=== PATIENT | female | born 1945 | race Caucasian/White ===

== ENCOUNTER 2017-03-31 05:45 | Inpatient (IN) | payer OTHER ==
[2017-03-28 20:46] LABS: HEMATOCRIT 37.4 % (36.0-48.0); HEMOGLOBIN 11.8 g/dL (12.0-16.0)
[2017-03-28 20:54] LABS: CALCIUM, SERUM 8.9 MG/DL (8.5-10.4); CHLORIDE, SERUM 99 MMOL/L (96-112); CO2 (CARBON DIOXIDE) 33 MMOL/L (24-34); CREATININE 1.57 MG/DL (0.55-1.02); GFR AFRICAN AMERICAN 38 ML/MIN (>=60); GFR NON AFRICAN AMERICAN 33 ML/MIN (>=60); POTASSIUM, SERUM 4.5 MMOL/L (3.5-5.3); SODIUM, SERUM 137 MMOL/L (135-148)
[2017-03-28 20:55] LABS: BUN (BLOOD UREA NITROGEN) 18 MG/DL (6-23); GLUCOSE, SERUM 231 MG/DL (60-99)
[~2017-03-31] VITALS: Ht 165.1 cm; Wt 116.6 kg
--- NOTE | ~2017-03-31 | CN ---
Consultation Report [facility] [address] [place]. [address] NAME: ODALIS NG : 44 STATUS : ADM IN PAT#: [id number] AGE: 71 ADM/REG DATE : 03/31/17 MR#: [id number] REPORT SERV DATE: 04/02/17 DICTATED BY: GILMA GUZMAN DATE: 04/02/17 REPORT STATUS : Draft TRANSCRIBED BY: NIELS DATE: 04/02/17 CONSULT NOTE DATE OF CONSULTATION: REASON FOR CONSULTATION: Acute renal insufficiency. HISTORY OF PRESENT ILLNESS: This is a 71-year-old woman who had been complaining about lumbar spine pain. The patient was brought into the hospital for surgical intervention that was done on 03/31/2017. The patient had been having some recurrent radiculopathy. Has a history of lumbar laminectomy L4-L5 x2. The patient had done a revision facetectomy at L4- L5. Second postop day, the patient was noted to have acute on chronic kidney disease and evidence of urinary tract infection. Hospitalist consulted for further inpatient management. The patient reports pain postoperatively, but controlled with current pain medications. Denies any chest pain, fever, chills, cough, shortness of breath, palpitations, diaphoresis, hemoptysis, melena, hematochezia, orthopnea, lower extremity swelling, slurred speech, or loss of consciousness. ALLERGIES: PENICILLIN, PERCOCET, CECLOR. MEDICATIONS: Include diclofenac, Neurontin, [place], tramadol, losartan, Trulicity, omeprazole, levothyroxine, Tradjenta, amlodipine, Januvia, glipizide, Toujeo, Humalog, allopurinol, citalopram. PAST MEDICAL HISTORY: L4-L5 lumbar laminectomy, cataract extraction, arthroscopy of the right knee. FAMILY HISTORY: Significant for cancer, rheumatoid arthritis. SOCIAL HISTORY: The patient is and retired. Denied any tobacco or illicit drug use, but reported occasional alcohol consumption. REVIEW OF SYSTEMS: Twelve-point systems reviewed; otherwise, negative per HPI. PHYSICAL EXAMINATION: VITAL SIGNS: Temperature 98.5, heart rate 92, blood pressure 151/67, respiratory rate 20, and O2 saturation 96 on 3 L. GENERAL: In no acute distress, obese. HEENT: EOMI, PERRLA, nonicteric sclerae, nonerythematous pharynx. NECK: Supple. No JVD. No lymphadenopathy. RESPIRATORY: Clear to auscultation bilaterally. No wheezes, rhonchi, or crackles. CARDIOVASCULAR: Regular rate and rhythm. No murmurs, rubs, or gallops. ABDOMEN: Bowel sounds positive. Soft, nontender, and nondistended. No rebound or Consultation Report [address] [place]. [address] NAME: ODALIS NG : 44 STATUS : ADM IN PAT#: [id number] AGE: 71 ADM/REG DATE : 03/31/17 MR#: [id number] REPORT SERV DATE: 04/02/17 DICTATED BY: GILMA GUZMAN DATE: 04/02/17 REPORT STATUS : Draft TRANSCRIBED BY: NIELS DATE: 04/02/17 guarding. SKIN: Dressing intact and clean. EXTREMITIES: No cyanosis. NEUROLOGIC: Alert and oriented x3. Nonfocal. LABORATORY DATA: Sodium 127, potassium 5.1, chloride 93, bicarb 24, BUN 41, creatinine 3.11, glucose 188. UA with evidence of urinary tract infection. ASSESSMENT: 1. Status post lumbar spine surgery. 2. Acute on chronic kidney disease, stage 3, likely of prerenal physiology with JASIEL inhibitor contributing. 3. Urinary tract infection. 4. Hyponatremia, secondary to low p.o. intake. 5. Insulin-dependent diabetes type 2. PLAN: We will check urine sodium, urine creatinine, calculate FENa. Check renal ultrasound to rule out any evidence of obstruction. IV fluids. Hold losartan. Consider Renal consult in the morning if the renal function deteriorates. Add Rocephin. Check urine cultures. Titrate antibiotics accordingly per sensitivities. Follow labs in the morning. Further evaluation and management per clinical course. CODE STATUS: Full code. DVT prophylaxis per primary. Total time for consult note, 35 minutes. CRISTA/NIELS Sonya Atkins MD / [id number] CC: Lane Fernandez II, M.D.
--- NOTE | ~2017-03-31 | OP ---
Record Of Operation [place] [id number] [facility] [place]. [address] NAME: ODALIS NG : 44 STATUS : ADM IN PAT#: [id number] AGE: 71 ADM/REG DATE : 03/31/17 MR#: [id number] REPORT SERV DATE: 04/01/17 DICTATED BY: GOSIA EVERETT II DATE: 04/01/17 REPORT STATUS : Draft TRANSCRIBED BY: MODTaina DATE: 04/01/17 DATE OF PROCEDURE: 03/31/2017 PREOPERATIVE DIAGNOSES: 1. Left lower extremity recurrent radiculopathy. 2. History of lumbar laminectomy L4-L5 x2. 3. Post-laminectomy instability with recurrent stenosis. POSTOPERATIVE DIAGNOSES: 1. Left lower extremity recurrent radiculopathy. 2. History of lumbar laminectomy L4-L5 x2. 3. Post-laminectomy instability with recurrent stenosis. PROCEDURES: 1. Revision facetectomy, L4-L5. 2. Interbody arthrodesis, L4-L5. 3. Application of prosthetic device, L4-L5. 4. Posterolateral arthrodesis, L4-5. 5. Posterior nonsegmental instrumentation, L4-L5. 6. Use of the microscope and stereotactic spinal imaging. 7. Use of allograft substitute (morselized). 8. Use of bone morphogenic protein. FLUIDS REPLACED: 1200 mL LR. ESTIMATED BLOOD LOSS: 75 mL. DRAINS: One drain. COMPLICATIONS: None. ANTIBIOTIC: Preoperatively. IMPLANTS: Alphatec. PREOPERATIVE HISTORY: A friendly 71-year-old female, well known to me. She presents with recurrent leg pain secondary to recurrent stenosis. She has had decompressions at L4-5 twice. We discussed the pros and cons of continuing nonoperative care versus surgery. I felt a complete facetectomy and fusion was her best option. I felt that a revision laminectomy alone would likely not work intermediate to long-term. We discussed the more common risks which include, but are not limited to infection, bleeding, and spinal fluid leak. We discussed the chance of hardware failure and adjacent segment degeneration. DESCRIPTION OF PROCEDURE: After informed consent was obtained, the patient was brought to [facility] [address] [place]. [address] NAME: ODALIS NG : 43 STATUS : ADM IN PAT#: [id number] AGE: 71 ADM/REG DATE : 03/31/17 MR#: [id number] REPORT SERV DATE: 04/01/17 DICTATED BY: GOSIA EVERETT II DATE: 04/01/17 REPORT STATUS : Draft TRANSCRIBED BY: NIELS DATE: 04/01/17 the operating room at her request and general anesthesia achieved. She was placed in the prone position. The back was prepped and draped in a sterile fashion. The stereotactic spinal pin was placed into the iliac crest and the intraoperative CT scan completed. The stereotactic guidance was then used throughout the remainder of the case. Next, the minimally invasive incision was now performed on the left and the minimally invasive quadrant retractor was placed. This was rather difficult because of the depth of the operative site. We used 9 cm custom length retractor blades. We then used the 9 and 11 cm medial to lateral blades. With the microscope in place, we now began the revision facetectomy. The pars was now removed and the pedicle to pedicle decompression achieved. There was severe compression upon the L5 nerve root and moderate compression upon the L4 nerve root. Both nerve roots were well decompressed including the canal. There was moderate scarring. Next, the irrigation was performed. Next, the interbody arthrodesis was initiated with the diskectomy at L4-L5. The L5 nerve root was gently retracted and the diskectomy completed with the pituitary rongeurs, Kerrison rongeurs, and the curettes. Punctate bleeding bone was identified on both endplates. The area was now irrigated. Next, local autograft and allograft substitute and bone morphogenic protein were placed into the anterior column. Next, the prosthetic device (12 mm height) was placed also into the anterior column. The excellent fit was obtained. Next, the stereotactic guidance was used for placement of the pedicle screws into L4, L5. On the right percutaneous screws were placed. The repeat CT scan confirmed acceptable placement of the implants. The rods were then final tightened. We then placed a local autograft and allograft substitute over the decorticated transverse processes of L4 and L5. The deep drain was placed. Standard closure was then performed, and the patient was extubated and transferred to PACU in stable condition. MUKESH/NIELS Gosia Everett II, M.D. / [id number] CC: Virgilio Locke II, III, D.O.
[~2017-03-31 05:45] MED LIST: ACET500CAP PO; ARMOUR THYRO PO; ARMOUR THYRO180 MG PO; CELEXA40 MG PO; CINNAMON CHROMIUM PO; COZ50 PO; CYANO1000T PO; FLEX PO; GLUCOPHAGE1000 MG PO; GLUCOTRO10 PO; GREEN TEA PO; HARD NAILS PO; HUMALOG SC; JANUVIA; JANUVIA100 MG PO; LEVOTHYROXIN175 MCG PO; LEVOTHYROXIN200 MCG PO; NEUR300 PO; PRILO PO; PRIN10 PO; SINGULAIR1 PO; TOUJEO PO; TOUJEO SQ; TRADJENTA5 MG PO; TRAZODONE150 MG PO; TRULICITY0.75 MG/0. SQ; ULTRAM50 PO; VENTOLIN HFA INH; VITE PO; VOLT75 PO; Z100 PO; ZESTRIL30 MG PO
[2017-04-02 03:52] LABS: ASCORBIC ACID (UR NOT ORDER) NEG (NEG); BILIRUBIN, URINE NEGATIVE (NEG); KETONE, URINE NEGATIVE (NEG); LEUKOCYTE ESTERASE(NOT OR MOD (NEG); WBC (NOT ORDERED) (RFLEX) 108 (0-5)
[2017-04-02 05:48] LABS: BUN (BLOOD UREA NITROGEN) 41 MG/DL (6-23); CALCIUM, SERUM 8.1 MG/DL (8.5-10.4); CHLORIDE, SERUM 93 MMOL/L (96-112); CO2 (CARBON DIOXIDE) 24 MMOL/L (24-34); CREATININE 3.11 MG/DL (0.55-1.02); GFR AFRICAN AMERICAN 17 ML/MIN (>=60); GFR NON AFRICAN AMERICAN 14 ML/MIN (>=60); GLUCOSE, SERUM 188 MG/DL (60-99); POTASSIUM, SERUM 5.1 MMOL/L (3.5-5.3); SODIUM, SERUM 127 MMOL/L (135-148)
[2017-04-03 10:49] LABS: BUN (BLOOD UREA NITROGEN) 40 MG/DL (6-23); CALCIUM, SERUM 8.1 MG/DL (8.5-10.4); CHLORIDE, SERUM 99 MMOL/L (96-112); CO2 (CARBON DIOXIDE) 24 MMOL/L (24-34); POTASSIUM, SERUM 5.2 MMOL/L (3.5-5.3); SODIUM, SERUM 131 MMOL/L (135-148)
[2017-04-03 10:50] LABS: CREATININE 1.66 MG/DL (0.55-1.02); GFR AFRICAN AMERICAN 35 ML/MIN (>=60); GFR NON AFRICAN AMERICAN 30 ML/MIN (>=60); GLUCOSE, SERUM 115 MG/DL (60-99)
[2017-04-04 05:22] LABS: BASOPHILS 0.2 %; BASOPHILS ABSOLUTE 0.02 10/3/uL (0.0-0.16); EOSINOPHILS 1.4 %; EOSINOPHILS ABSOLUTE 0.14 10/3/uL (0.0-0.53); IMMATURE GRANULOCYTES 0.2 %; IMMATURE GRANULOCYTES ABSOLUTE 0.02 10/3/uL (0.0-0.11); LYMPHOCYTES 12.3 %; LYMPHOCYTES ABSOLUTE 1.27 10/3/uL (0.67-4.30); MEAN CORPUS HGB CONC 32.1 g/dL (32.0-36.0); MEAN CORPUSCULAR VOLUME 93.3 fL (80-100); MONOCYTES 9.7 %; MONOCYTES ABSOLUTE 1.01 10/3/uL (0.21-1.20); NEUTROPHILS 76.2 %; PLATELET COUNT 177 10/3/uL (150-400); RBC DISTRIBUTION WIDTH 15.3 % (12.0-16.0); WHITE BLOOD CELLS 10.4 10/3/uL (4.5-10.5)
[2017-04-04 05:27] LABS: MANUAL DIFF NO %
[2017-04-04 05:28] LABS: CALCIUM, SERUM 8.3 MG/DL (8.5-10.4); CHLORIDE, SERUM 101 MMOL/L (96-112); CO2 (CARBON DIOXIDE) 26 MMOL/L (24-34); CREATININE 1.29 MG/DL (0.55-1.02); GFR AFRICAN AMERICAN 48 ML/MIN (>=60); GFR NON AFRICAN AMERICAN 41 ML/MIN (>=60); GLUCOSE, SERUM 100 MG/DL (60-99); POTASSIUM, SERUM 4.9 MMOL/L (3.5-5.3); SODIUM, SERUM 134 MMOL/L (135-148)
[2017-04-04 05:30] LABS: BUN (BLOOD UREA NITROGEN) 29 MG/DL (6-23)
[2017-04-04 17:09] LABS: ULTRASENSITIVE TSH 0.047 MCIU/ML (0.358-3.740)
[2017-04-05 05:13] LABS: BASOPHILS 0.3 %; BASOPHILS ABSOLUTE 0.03 10/3/uL (0.0-0.16); EOSINOPHILS 2.9 %; EOSINOPHILS ABSOLUTE 0.26 10/3/uL (0.0-0.53); HEMATOCRIT 27.9 % (36.0-48.0); HEMOGLOBIN 9.1 g/dL (12.0-16.0); IMMATURE GRANULOCYTES 0.3 %; IMMATURE GRANULOCYTES ABSOLUTE 0.03 10/3/uL (0.0-0.11); LYMPHOCYTES 9.8 %; LYMPHOCYTES ABSOLUTE 0.87 10/3/uL (0.67-4.30); MANUAL DIFF NO %; MEAN CORPUS HGB CONC 32.6 g/dL (32.0-36.0); MEAN CORPUSCULAR HEMOGLOB 30.1 pg (26.0-34.0); MEAN CORPUSCULAR VOLUME 92.4 fL (80-100); MEAN PLATELET VOLUME 10.6 fL (9.2-13.0); MONOCYTES 10.2 %; NEUTROPHILS 76.5 %; NEUTROPHILS ABSOLUTE 6.75 10/3/uL (2.02-8.40); PLATELET COUNT 180 10/3/uL (150-400); RBC DISTRIBUTION WIDTH 15.5 % (12.0-16.0); RED CELL COUNT 3.02 10/6/uL (4.0-5.6); WHITE BLOOD CELLS 8.8 10/3/uL (4.5-10.5)
[2017-04-05 05:24] LABS: CALCIUM, SERUM 9.1 MG/DL (8.5-10.4); CHLORIDE, SERUM 102 MMOL/L (96-112); CO2 (CARBON DIOXIDE) 29 MMOL/L (24-34); CREATININE 1.02 MG/DL (0.55-1.02); GFR AFRICAN AMERICAN 64 ML/MIN (>=60); GFR NON AFRICAN AMERICAN 55 ML/MIN (>=60); POTASSIUM, SERUM 4.9 MMOL/L (3.5-5.3); SODIUM, SERUM 136 MMOL/L (135-148)
[2017-04-05 05:26] LABS: BUN (BLOOD UREA NITROGEN) 23 MG/DL (6-23); GLUCOSE, SERUM 131 MG/DL (60-99)
== END 2017-04-06 18:27 | DRG 460 ==
LOC: ENRESERV → ENRESERVTM → ENRESERVDT → SDC/OF 11:21 → 3SO 11:21
PROVIDERS: Internal Medicine; Nurse Practitioner; Orthopaedic Surgery
DX: M51.16 Intervertebral disc disorders with radiculopathy, lumbar region (principal); N17.9 Acute kidney failure, unspecified; E11.22 Type 2 diabetes mellitus with diabetic chronic kidney disease; N39.0 Urinary tract infection, site not specified; E87.1 Hypo-osmolality and hyponatremia; R44.3 Hallucinations, unspecified; F41.9 Anxiety disorder, unspecified; F32.9 Major depressive disorder, single episode, unspecified; M79.7 Fibromyalgia; I12.9 Hypertensive chronic kidney disease with stage 1 through stage 4 chronic kidney disease, or unspecified chronic kidney disease; N18.3 Chronic kidney disease, stage 3 (moderate); Z79.84 Long term (current) use of oral hypoglycemic drugs; Z79.899 Other long term (current) drug therapy; Z88.0 Allergy status to penicillin; Z88.5 Allergy status to narcotic agent; Z88.8 Allergy status to other drugs, medicaments and biological substances; Z79.4 Long term (current) use of insulin; Z87.891 Personal history of nicotine dependence; Z86.73 Personal history of transient ischemic attack (TIA), and cerebral infarction without residual deficits; J44.9 Chronic obstructive pulmonary disease, unspecified; M10.9 Gout, unspecified; Z96.653 Presence of artificial knee joint, bilateral; M48.06 Spinal stenosis, lumbar region; K21.9 Gastro-esophageal reflux disease without esophagitis
CPT/HCPCS: 36415; 76775; 80048; 81001; 82570; 82962; 83735; 84300; 84443; 85014; 85018; 85025; 87086; 87641; 88304; 88311; 93005; 94640; 97116-GP; 97161-GP; 97166-GO; 97530-GP; A9270-GY; C1713; C1768; J0360; J1170; J1580; J2250; J2370; J2405; J2710; J3010; J3370